=== PATIENT | female | born 1975 | race African-American/Black ===

== ENCOUNTER 2019-09-07 14:39 | Emergency (ER) | payer OTHER ==
[~2019-09-07] VITALS: Ht 167.6 cm; Wt 68.0 kg
[2019-09-07] MEDS ORDERED: KETOROLAC 60MG/2ML VIAL IM ONE (15:30)
[2019-09-07 15:50] VITALS: BP 128/75
== END 2019-09-07 16:36 | disposition home or self-care (01) ==
LOC: ER 15:04
DX: S80.01XA Contusion of right knee, initial encounter (principal); W01.0XXA Fall on same level from slipping, tripping and stumbling without subsequent striking against object, initial encounter; Y93.89 Activity, other specified; Y92.89 Other specified places as the place of occurrence of the external cause; Y99.8 Other external cause status
CPT/HCPCS: 73560; 81025; 96372; 99283; J1885